=== PATIENT | male | born 1950 | race Caucasian/White ===

== ENCOUNTER 2023-03-14 00:10 | Emergency (ER) | payer OTHER, MEDICAID ==
[~2023-03-14] VITALS: Ht 160 cm; Wt 59.0 kg
[2023-03-14 00:25] VITALS: BP 143/69
--- NOTE | 2023-03-14 00:31 | NUR ---
TO BED 12 FOLLOWING TRIAGE
--- NOTE | 2023-03-14 00:40 | NUR ---
PT RESTING IN BED, A/OX4, CHEST RISING AND FALLS SYMETRICAL, NO S/S DISTRESS, PT ON MONITOR
[2023-03-14] MEDS ORDERED: ONDANSETRON 4 MG/2 ML VIAL IVP ONE (02:10)
[2023-03-14] MEDS ORDERED: NACL 0.9% 1,000 ML IV ONE (02:10)
[2023-03-14 02:27] LABS: BASOPHILS # (AUTO) 0.1 K/uL (0.00-0.22); BASOPHILS % (AUTO) 0.7 % (0.0-2.0); HEMATOCRIT 44.2 % (36-52); HEMOGLOBIN 15.1 g/dL (12.0-18.0); LYMPHOCYTES # (AUTO) 1.1 K/uL (2.0-11.5); LYMPHOCYTES % (AUTO) 10.3 % (20.5-51.1); MEAN CORPUSCULAR HEMOGLOBIN 33 pg (27-31); MEAN CORPUSCULAR HGB CONC 34 g/dL (33-37); MEAN CORPUSCULAR VOLUME 96.5 fL (80-94); MONOCYTES # (AUTO) 0.3 K/uL (0.8-1.0); MONOCYTES % (AUTO) 3.3 % (1.7-9.3); NEUTROPHILS # (AUTO) 9.1 K/uL (1.8-7.7); NEUTROPHILS % (AUTO) 85.7 % (42.2-75.2); PLATELET COUNT (AUTO) 176 K/uL (140-450); RED BLOOD CELL COUNT(AUTO) 4.58 MIL/uL (4.20-6.10); RED CELL DISTRIBUTION WIDTH 14.1 % (11.6-13.7); WHITE BLOOD COUNT (AUTO) 10.6 K/uL (4.8-10.8)
[2023-03-14] MEDS ORDERED: MECLIZINE 25 MG TAB PO ONE (02:30)
[2023-03-14 02:55] LABS: ALBUMIN 3.9 g/dL (3.4-5.0); ANION GAP 14.8 (8-16); ASPARTATE AMINOTRANSFERASE 37 U/L (15-37); CARBON DIOXIDE 27.5 mmol/L (21-32); CHLORIDE 102 mmol/L (98-107); GLUCOSE 106 mg/dL (74-106); POTASSIUM 4.3 mmol/L (3.5-5.1); SODIUM SERUM 140 mmol/L (136-145); TOTAL BILIRUBIN 1.5 mg/dL (0.0-1.0); UREA NITROGEN, BLOOD 23 mg/dL (7-18)
[2023-03-14] MEDS ORDERED: ONDA4SOL8 PO (05:30)
--- NOTE | 2023-03-14 05:31 | NUR ---
Dr. Baum explained results and treatment plans.
[2023-03-14] MEDS ORDERED: ONDA-188 SL (05:34)
[2023-03-14 05:40] VITALS: BP 125/70
[2023-03-14] MEDS ORDERED: MECL-303 PO (05:40)
== END 2023-03-14 05:40 | disposition home or self-care (01) ==
LOC: MED 00:10
DX: R42 Dizziness and giddiness (principal); R11.2 Nausea with vomiting, unspecified; Z79.899 Other long term (current) drug therapy
CPT/HCPCS: 36415; 80053; 84484; 85025; 96361; 96374; 99285; J2405; J7030; J8597